=== PATIENT | female | born 1975 | race Caucasian/White ===

== ENCOUNTER → 2020-11-13 01:17 | Outpatient (CLI) | payer BC, SELFPAY ==
[2020-11-13 17:12] LABS: SARS-CoV-2 RNA PCR Negative
== END ==
PROVIDERS: PCP Family Medicine; Visit Provider Internal Medicine Gastroenterology
DX: Z01.812 Encounter for preprocedural laboratory examination (principal); Z20.822 Contact with and (suspected) exposure to COVID-19
CPT/HCPCS: C9803; U0003; U0005

== ENCOUNTER 2020-11-16 01:31 | Day surgery (SDC) | payer BC, SELFPAY ==
[2020-11-07 10:05] VITALS: BMI 17.8
[2020-11-16 08:25] VITALS: BP 95/55; PULSE 60; RESP 18; TEMP 36.2; O2SAT 99
[2020-11-16] MEDS: LACTATED RINGERS 1,000 ML 150 ML IV CONT (08:31)
--- NOTE | 2020-11-16 09:13 | WPDANESEPPF ---
Anes - Initial Pre Proc Eval Procedure: Operation Date: 11/16/20 09:45 Proposed Procedures p Esophagogastroduodenoscopy - Rusty Reed MD Date/Time: 11/16/20 09:13 Surgeon: Rusty Reed MD Pre Op Diagnosis: GERD Patient Data Age: 45 Gender: F Height: 1.68 m Weight: 51.6 kg Last Vital Signs Temp 97.2 F L 11/16/20 08:25 Pulse 60 11/16/20 08:25 Resp 18 11/16/20 08:25 BP 95/55 L 11/16/20 08:25 Pulse Ox 99 11/16/20 08:25 Allergies Allergy/AdvReac Type Severity Reaction Status Date / Time Cephalosporins Allergy Mild Other Verified 11/16/20 08:22 cefaclor Allergy Other Verified 11/16/20 08:22 Home Medications Medication Instructions Recorded Confirmed Type trazodone 100 mg tablet 50 mg PO HS tablet 05/07/20 11/16/20 History bupropion HCl 300 mg 24 hr tablet, 300 mg PO QAM #30 tablet 07/17/20 11/16/20 Rx extended release lansoprazole 30 mg capsule,delayed 30 mg PO DAILY #60 cap 10/03/20 11/16/20 Rx release Patient hx anesthesia problems: none Family hx anesthesia problems: none PMFSH Past Medical History Medical History (Updated 09/11/20 @ 10:28 by Vladimir Tamayo MD) Acute sinusitis, unspecified Breast cancer screening by mammogram Chronic anxiety Chronic constipation Chronic depression Depression Gastritis Gastro-esophageal reflux disease without esophagitis Irritable bowel Lipoma of abdominal wall Medical cannabis use Methadone maintenance therapy patient Tobacco use disorder, continuous Urinary urgency Surgical History Surgical History (Updated 05/25/19 @ 10:42 by Keya Yin MA) H/O tubal ligation (~2009) Family History Family History (Updated 05/25/19 @ 10:43 by Keya Yin MA) Grandparent Heart disease Social History Social History Smoking packs per day: 1 Smoking cigarettes per day: 20.0 Years smoked: 20 Smoking pack-years: 20.00 Smoking status: Current every day smoker Tobacco type: cigarettes Alcohol intake: current Substance use: current Substance use type: marijuana Last use: Weekly Living arrangements: with family Spiritual care concerns: No Anes - Eval Final PreProcedure Day of Procedure 11/16/20 09:13 Patient weight: normal Heart: regular rate and rhythm Lungs: clear to auscultation Airway: Mallampati scale class II Neurological: alert and oriented Last oral intake: >/= 8 hours ASA classification: II Emergent: no Anesthetic plan: proceed Anesthesia type and monitoring: general GIVS and standard monitoring Informed Consent: The patient's anesthetic plan and its attendant risks and benefits were discussed with the patient/family/POA. Questions were solicited and answers provided to the satisfaction of the patient/family/POA.
--- NOTE | 2020-11-16 09:26 | PM.HPGS ---
History of Present Illness History of Present Illness Consent: Risks, benefits, and alternatives have been discussed and questions answered. Patient agrees to proceed with procedure. Chief complaint: GERD Narrative: Danya Armendariz is a 45 year old female Who has been suffering from chronic nausea. Every days she seems to be nauseated for much of the day. Her appetite has dropped significantly. She has lost at least 20 lb. This has been going on for about 7 months. Twenty years ago she was told that she had an ulcer. She has been taking [id number] Prilosec and Prevacid both, every day without much improvement. She also has been getting pains in the epigastric area which at times are very [place]. Even lettuce will bring this on. She does not take NSAIDs Review of Systems Review of Systems: All systems reviewed & are unremarkable except as noted in HPI and below PMFSH Past Medical History Medical History Acute sinusitis, unspecified Breast cancer screening by mammogram Chronic anxiety Chronic constipation Chronic depression Depression Gastritis Gastro-esophageal reflux disease without esophagitis Irritable bowel Lipoma of abdominal wall Medical cannabis use Methadone maintenance therapy patient Tobacco use disorder, continuous Urinary urgency Surgical History Surgical History H/O tubal ligation (~2009) Family History Family History Grandparent Heart disease Social History Social History Smoking packs per day: 1 Smoking cigarettes per day: 20.0 Years smoked: 20 Smoking pack-years: 20.00 Smoking status: Current every day smoker Tobacco type: cigarettes Alcohol intake: current Substance use: current Substance use type: marijuana Last use: Weekly Living arrangements: with family Spiritual care concerns: No Meds Home Medications and Allergies Home Medications Medication Instructions Recorded Confirmed Type trazodone 100 mg tablet 50 mg PO HS tablet 05/07/20 11/16/20 History bupropion HCl 300 mg 24 hr tablet, 300 mg PO QAM #30 tablet 07/17/20 11/16/20 Rx extended release lansoprazole 30 mg capsule,delayed 30 mg PO DAILY #60 cap 10/03/20 11/16/20 Rx release Allergies Allergy/AdvReac Type Severity Reaction Status Date / Time Cephalosporins Allergy Mild Other Verified 11/16/20 08:22 cefaclor Allergy Other Verified 11/16/20 08:22 Vital Signs Vital Signs - 24 hr 11/16/20 08:25 Temperature 36.2 C L Pulse Rate 60 Respiratory Rate 18 Blood Pressure 95/55 L Pulse Oximetry 99 Exam Const: General: alert Orientation/consciousness: patient oriented x3 Resp: Auscultation: clear to auscultation bilaterally Cardio: Rhythm: regular rhythm GI: GI Palp: Yes Soft to palpation and No Tenderness to palpation present (GI) Neuro: General: patient oriented x3 Assessment and Plan Assessment and plan (1) Epigastric pain: Code(s): R10.13 - Epigastric pain Status: Acute Assessment and Plan: EGD with possible biopsy or dilatation or cautery.
[2020-11-16 09:36] VITALS: BP 111/72; PULSE 73; RESP 22; O2SAT 99
[2020-11-16 09:46] VITALS: BP 97/68; PULSE 70; RESP 20; O2SAT 99
[2020-11-16 09:56] VITALS: BP 108/68; PULSE 70; RESP 20; O2SAT 99
== END 2020-11-16 10:04 | disposition home or self-care (01) ==
PROVIDERS: PCP Family Medicine; Visit Provider Internal Medicine Gastroenterology
PROC: 0DJ08ZZ Inspection of Upper Intestinal Tract, Via Natural or Artificial Opening Endoscopic (ICD-10-PCS; CPT 43235; principal; 2020-11-16 09:45)
DX: R11.0 Nausea (principal); R10.13 Epigastric pain; K21.9 Gastro-esophageal reflux disease without esophagitis; F41.8 Other specified anxiety disorders; K58.9 Irritable bowel syndrome, unspecified; F17.210 Nicotine dependence, cigarettes, uncomplicated; F12.90 Cannabis use, unspecified, uncomplicated
CPT/HCPCS: 43239; 88305; J2704; J7120